=== PATIENT | female | born 1940 | race African-American/Black ===

== ENCOUNTER 2016-12-05 09:00 | Emergency (ER) | payer MEDICARE, MEDICAID ==
[2016-12-05] MEDS ORDERED: GADAVIST 7.5 ML SYR (HMH) IV ONE (09:01)
[2016-12-05] MEDS ORDERED: Meclizine HCl 25 MG TAB ONE (10:41)
== END 2016-12-05 13:16 | disposition home or self-care (01) ==
LOC: ER 09:00
DX: H81.13 Benign paroxysmal vertigo, bilateral (principal); I10 Essential (primary) hypertension; K21.9 Gastro-esophageal reflux disease without esophagitis; Z79.899 Other long term (current) drug therapy
CPT/HCPCS: 36415; 70553; 71010; 80053; 81001; 82947; 85025; 85610; 87088; 93005